=== PATIENT | female | born 1990 | race Caucasian/White ===

== ENCOUNTER 2016-10-12 19:10 | Outpatient (CLI) | payer BC ==
[~2016-10-12] VITALS: Ht 160 cm; Wt 71.8 kg
[~2016-10-12 19:10] MED LIST: ASPI325T4 PO; ATOR10TA9 PO; MAGN500C PO; MAGN500T PO; NORG1TAB61 PO; VITA1TAB71 PO
[2016-10-12 19:30] VITALS: BP 108/70
== END 2016-10-12 21:09 | disposition home or self-care (01) ==
LOC: LDOP 19:10
PROVIDERS: ATTEND Student in an Organized Health Care Education/Training Program
DX: O26.893 Other specified pregnancy related conditions, third trimester (principal); O62.9 Abnormality of forces of labor, unspecified; R10.9 Unspecified abdominal pain; Z3A.39 39 weeks gestation of pregnancy
CPT/HCPCS: 59025; 89060; 99211; G0463; Q0114

== ENCOUNTER 2016-10-13 20:44 | Outpatient (CLI) | payer BC ==
[~2016-10-13] VITALS: Ht 160 cm; Wt 71.8 kg
[2016-10-13 21:11] VITALS: BP 126/77
== END 2016-10-13 22:15 | disposition home or self-care (01) ==
LOC: LDOP 20:44
PROVIDERS: ATTEND Student in an Organized Health Care Education/Training Program
DX: O26.893 Other specified pregnancy related conditions, third trimester (principal); O42.92 Full-term premature rupture of membranes, unspecified as to length of time between rupture and onset of labor; O62.9 Abnormality of forces of labor, unspecified; R10.9 Unspecified abdominal pain; Z3A.38 38 weeks gestation of pregnancy
CPT/HCPCS: 59025; 99211; G0463

== ENCOUNTER 2016-10-18 06:24 | Outpatient (CLI) | payer BC ==
[~2016-10-18] VITALS: Ht 160 cm; Wt 72.0 kg
== END 2016-10-18 07:00 | disposition home or self-care (01) ==
LOC: LDOP 06:24
PROVIDERS: ATTEND Student in an Organized Health Care Education/Training Program
DX: O62.9 Abnormality of forces of labor, unspecified (principal); O42.92 Full-term premature rupture of membranes, unspecified as to length of time between rupture and onset of labor; Z3A.39 39 weeks gestation of pregnancy
CPT/HCPCS: 59025; 99211; G0463

== ENCOUNTER 2016-10-20 14:58 | Inpatient (IN) | payer BC ==
[~2016-10-20] VITALS: Ht 160 cm; Wt 72.2 kg
[2016-10-20 15:21] VITALS: BP 116/78
[2016-10-20] MEDS ORDERED: ASPI-496 PO (15:49)
[2016-10-20] MEDS ORDERED: PREN1TAB60 PO (15:50)
[2016-10-20] MEDS ORDERED: D5%-LACTATED RINGERS 1,000 ML IV SCH ×2 (16:43→17:11)
[2016-10-20] MEDS ORDERED: OXYTOCIN 30U/ 0.9% NaCL 500ML 500 ML IV ONE (16:43)
[2016-10-20] MEDS ORDERED: ONDANSETRON 2MG/ML, 2ML IVPush PRN (17:00)
[2016-10-20] MEDS ORDERED: METOCLOPRAMIDE 5 MG/ML, 2ML IVPush PRN (17:00)
[2016-10-20] MEDS ORDERED: SODIUM CHLORIDE FLUSH 10ML SYR IVF PRN (17:00)
[2016-10-20] MEDS ORDERED: SODIUM CITRATE/CITRIC ACID 30 ML UDC PO PRN (17:00)
[2016-10-20] MEDS ORDERED: FENTANYL PF 100 MCG/2ML IVPush PRN (17:00)
[2016-10-20] MEDS ORDERED: LACTATED RINGERS 1,000 ML IV SCH (17:11)
[2016-10-20] MEDS ORDERED: NEWBORN KIT ONE (17:36)
== END 2016-10-20 21:30 | disposition home or self-care (01) | DRG 782 ==
LOC: LDOP 14:58 → LDIP 16:50
PROVIDERS: ADMIT Student in an Organized Health Care Education/Training Program; ATTEND Student in an Organized Health Care Education/Training Program
DX: O62.8 Other abnormalities of forces of labor (principal); Z3A.39 39 weeks gestation of pregnancy; Z88.8 Allergy status to other drugs, medicaments and biological substances; Z86.73 Personal history of transient ischemic attack (TIA), and cerebral infarction without residual deficits
CPT/HCPCS: 36415; 59025; 85025; 86850; 86900; 96360; 96361; J7120

== ENCOUNTER 2016-10-21 16:17 | Inpatient (IN) | payer BC ==
[~2016-10-21] VITALS: Ht 160 cm; Wt 72.3 kg
[~2016-10-21 16:17] MED LIST changes: +ASPI-496 PO; +PREN1TAB60 PO
[2016-10-21 16:49] VITALS: BP 112/74
[2016-10-21] MEDS ORDERED: PROMETHAZINE 25 MG/ML, 1ML ONE (17:38)
[2016-10-21] MEDS ORDERED: MEPERIDINE/PF 100 MG/ML ONE (17:38)
[2016-10-21] MEDS ORDERED: PROMETHAZINE 25 MG/ML, 1ML IM ONE (18:00)
[2016-10-21] MEDS ORDERED: MEPERIDINE/PF 50 MG/ML IM PRN (18:00)
[2016-10-21] MEDS ORDERED: LACTATED RINGERS 1,000 ML IVBOLUS ONE (18:00)
[2016-10-21] MEDS ORDERED: CEFTRIAXONE PMX 1GM/50ML 50 ML IV ONE (18:00)
[2016-10-21] MEDS ORDERED: OXYTOCIN 30U/ 0.9% NaCL 500ML 500 ML IV ONE (21:03)
[2016-10-21] MEDS ORDERED: OXYTOCIN 30U/ 0.9% NaCL 500ML 500 ML IV PRN (21:03)
[2016-10-21] MEDS ORDERED: FENTANYL PF 100 MCG/2ML IVPush PRN (21:30)
[2016-10-21] MEDS ORDERED: ONDANSETRON 2MG/ML, 2ML IVPush PRN (21:30)
[2016-10-21] MEDS ORDERED: SODIUM CITRATE/CITRIC ACID 30 ML UDC PO PRN (21:30)
[2016-10-21] MEDS ORDERED: CALCIUM CARBONATE 500 MG TAB.CHEW PO PRN (21:30)
[2016-10-21] MEDS ORDERED: TERBUTALINE 1 MG/ML, 1ML IVPush PRN (21:30)
[2016-10-21] MEDS ORDERED: TERBUTALINE 1 MG/ML, 1ML SQ PRN (21:30)
[2016-10-21] MEDS ORDERED: FENTANYL PF 100 MCG/2ML IV PRN (21:30)
[2016-10-21] MEDS ORDERED: ALUMINUM/MAG/SIMETHICONE 30 ML UDC PO PRN (21:30)
[2016-10-21] MEDS ORDERED: METOCLOPRAMIDE 5 MG/ML, 2ML IVPush PRN (21:30)
[2016-10-21] MEDS ORDERED: LIDOCAINE/PF 1.5%-EPI 1:200K, 30ML ONE (21:41)
[2016-10-21] MEDS ORDERED: FENTANYL/BUPIV./NS/PF 250 ML EPIDCONT ONE (21:41)
[2016-10-21] MEDS ORDERED: FENTANYL/BUPIV./NS/PF 250 ML EPIDCONT SCH (22:02)
[2016-10-21] MEDS: LACTATED RINGERS 1,000 ML IV SCH (22:03)
[2016-10-21] MEDS ORDERED: OXYTOCIN 30U/ 0.9% NaCL 500ML 500 ML ONE (22:22)
[2016-10-21] MEDS ORDERED: LACTATED RINGERS 1,000 ML IVBOLUS PRN (22:30)
[2016-10-21] MEDS ORDERED: TERBUTALINE 1 MG/ML, 1ML ONE (22:44)
[2016-10-21] MEDS: D5%-LACTATED RINGERS 1,000 ML IV SCH (23:07)
[2016-10-22] MEDS ORDERED: NEWBORN KIT ONE (04:12)
[2016-10-22] MEDS ORDERED: MISOPROSTOL 200 MCG TABLET ONE (04:12)
[2016-10-22] MEDS ORDERED: LIDOCAINE 1%, 20ML ONE (04:12)
[2016-10-22] MEDS: LACTATED RINGERS 1,000 ML IV SCH ×3 (05:03→06:02)
[2016-10-22] MEDS: D5%-LACTATED RINGERS 1,000 ML IV SCH (05:03)
[2016-10-22] MEDS ORDERED: DOCUSATE 100 MG CAPSULE PO PRN (07:00)
[2016-10-22] MEDS ORDERED: IBUPROFEN 600 MG TABLET PO PRN (07:00)
[2016-10-22] MEDS ORDERED: HYDROcodone/APAP 5/325 TABLET PO PRN ×2 (07:00)
[2016-10-22] MEDS ORDERED: ONDANSETRON 2MG/ML, 2ML IV PRN (07:00)
[2016-10-22] MEDS ORDERED: MISOPROSTOL 200 MCG TABLET PR PRN (07:00)
[2016-10-22] MEDS ORDERED: CALCIUM CARBONATE 500 MG TAB.CHEW PO PRN (07:00)
[2016-10-22] MEDS ORDERED: OXYTOCIN 30U/ 0.9% NaCL 500ML 500 ML ONE (07:03)
[2016-10-22] MEDS: OXYTOCIN 30U/ 0.9% NaCL 500ML 500 ML IV SCH ×2 (07:14→16:56)
[2016-10-22] MEDS ORDERED: MEASLES,MUMPS&RUBELLA VACC/PF 0.5 ML SQ-VACC ONE (08:30)
[2016-10-22] MEDS: PRENATAL VIT/IRON/FA 1 EACH TABLET PO SCH (09:00)
[2016-10-22 09:15] VITALS: BP 113/76
[2016-10-22 12:10] VITALS: BP 110/68
[2016-10-22] MEDS: ACETAMINOPHEN 325 MG TABLET PO PRN ×2 (16:27→22:21)
[2016-10-22 16:32] VITALS: BP 120/82
[2016-10-22] MEDS: ASPIRIN 81 MG TABLET CHEW PO SCH (16:49)
[2016-10-22 19:25] VITALS: BP 102/64
[2016-10-23] VITALS: BP 105/70
[2016-10-23] MEDS ORDERED: HYDR-3240 PO (01:37)
[2016-10-23] MEDS ORDERED: IBUP800T PO (01:38)
[2016-10-23] MEDS ORDERED: DOCU-30 PO (01:39)
[2016-10-23] MEDS: OXYTOCIN 30U/ 0.9% NaCL 500ML 500 ML IV SCH ×2 (02:56→22:56)
[2016-10-23 04:40] VITALS: BP 117/67
[2016-10-23] MEDS: ACETAMINOPHEN 325 MG TABLET PO PRN ×3 (04:46→18:15)
[2016-10-23 07:55] VITALS: BP 107/68
[2016-10-23] MEDS: PRENATAL VIT/IRON/FA 1 EACH TABLET PO SCH (09:00)
[2016-10-23] MEDS: ASPIRIN 81 MG TABLET CHEW PO SCH (09:07)
[2016-10-23 21:00] VITALS: BP 111/79
[2016-10-24] MEDS: ACETAMINOPHEN 325 MG TABLET PO PRN (00:32)
[2016-10-24 07:24] VITALS: BP 107/45
[2016-10-24] MEDS: PRENATAL VIT/IRON/FA 1 EACH TABLET PO SCH (07:24)
[2016-10-24] MEDS: OXYTOCIN 30U/ 0.9% NaCL 500ML 500 ML IV SCH (08:56)
[2016-10-24] MEDS: ASPIRIN 81 MG TABLET CHEW PO SCH (08:57)
== END 2016-10-24 11:10 | disposition home or self-care (01) | DRG 775 ==
LOC: LDOP 16:17 → LDIP 21:33 → 2NW 10-22 09:14
PROVIDERS: ADMIT Student in an Organized Health Care Education/Training Program; ATTEND Student in an Organized Health Care Education/Training Program
PROC: 10E0XZZ Delivery of Products of Conception, External Approach (ICD-10-PCS; principal; 2016-10-22)
PROC: 0KQM0ZZ Repair Perineum Muscle, Open Approach (ICD-10-PCS; 2016-10-22)
PROC: 10907ZC Drainage of Amniotic Fluid, Therapeutic from Products of Conception, Via Natural or Artificial Opening (ICD-10-PCS; 2016-10-22)
PROC: 00HU33Z Insertion of Infusion Device into Spinal Canal, Percutaneous Approach (ICD-10-PCS; 2016-10-22)
PROC: 3E0R3CZ (ICD-10-PCS; 2016-10-22)
DX: O99.354 Diseases of the nervous system complicating childbirth (principal); G43.109 Migraine with aura, not intractable, without status migrainosus; O99.284 Endocrine, nutritional and metabolic diseases complicating childbirth; E28.2 Polycystic ovarian syndrome; O70.1 Second degree perineal laceration during delivery; O69.81X0 Labor and delivery complicated by cord around neck, without compression, not applicable or unspecified; O76 Abnormality in fetal heart rate and rhythm complicating labor and delivery; Z79.82 Long term (current) use of aspirin; Z37.0 Single live birth; Z3A.40 40 weeks gestation of pregnancy; Z86.73 Personal history of transient ischemic attack (TIA), and cerebral infarction without residual deficits; Z88.8 Allergy status to other drugs, medicaments and biological substances; Z91.018 Allergy to other foods
CPT/HCPCS: 36415; 81001; 85025; 86850; 86900; 87086; 89060; J0696; J2175; J2550; J3490; J2590; J7120; J7121; Q0114

== ENCOUNTER → 2017-03-18 | Outpatient (CLI) | payer BC, OTHER ==
[~2017-03-18] MED LIST changes: +ASPI325T17 PO; -ASPI325T4 PO; +DOCU-131 PO; +HYDR-3240 PO; +IBUP-1223 PO; -MAGN500C PO; +MAGN500C9 PO
== END | disposition home or self-care (01) ==
LOC: CFH 10:41
PROVIDERS: ATTEND Psychiatry & Neurology Neurology
DX: I63.8 Other cerebral infarction (principal)
CPT/HCPCS: 36415; 80061

== ENCOUNTER 2018-08-21 10:12 | Observation (INO) | payer OTHER ==
[~2018-08-21] VITALS: Ht 160 cm; Wt 70.9 kg
[2018-08-21 10:19] VITALS: BP 108/69
[2018-08-21 10:49] LABS: MICROSCOPIC INDICATED
[2018-08-21] MEDS ORDERED: BETAMETHASONE 6 MG/ML, 5ML IM SCH (11:00)
[2018-08-21] MEDS ORDERED: TERBUTALINE 1 MG/ML, 1ML SQ ONE (11:00)
[2018-08-21] MEDS ORDERED: BETAMETHASONE 6 MG/ML, 5ML IM ONE (11:01)
[2018-08-21] MEDS ORDERED: TERBUTALINE 1 MG/ML, 1ML ONE (11:37)
[2018-08-21] MEDS ORDERED: D5%-LACTATED RINGERS 1,000 ML IV SCH ×2 (12:30)
[2018-08-21 12:58] LABS: BASOPHILS # (AUTO) 0.03 x10^3/uL (0-0.1); BASOPHILS % (AUTO) 0 % (0-1); EOSINOPHILS % (AUTO) 0 % (1-7); LYMPHOCYTES % (AUTO) 13 % (22-44); MD NO; MEAN CORPUSCULAR HEMOGLOBIN 31.8 pg (27.0-34.8); MEAN CORPUSCULAR HGB CONC 34.4 g/dL (32.4-35.8); MEAN CORPUSCULAR VOLUME 92.4 fL (80-100); MEAN PLATELET VOLUME 8.1 fL (7.4-10.4); MONOCYTES # (AUTO) 0.22 x10^3/uL (0.2-0.8); MONOCYTES % (AUTO) 2 % (2-9); NEUTROPHILS # (AUTO) 8.06 x10^3/uL (1.8-6.8); NEUTROPHILS % (AUTO) 85 % (42-75); PLATELET COUNT 196 x10^3/uL (130-400); RED BLOOD COUNT 3.88 x10^6/uL (3.82-5.3); RED CELL DISTRIBUTION WIDTH 13.2 % (9.6-15.2)
[2018-08-21] MEDS ORDERED: AMPICILLIN 2 GM in SODIUM CHLORIDE 0.9% 100 ML IVPB STA (13:30)
[2018-08-21] MEDS ORDERED: ACETAMINOPHEN 325 MG TABLET ONE ×2 (14:44→14:45)
[2018-08-21] MEDS ORDERED: ACETAMINOPHEN 325 MG TABLET PO PRN (15:00)
[2018-08-21] MEDS ORDERED: LACTATED RINGERS 1,000 ML IV SCH (15:00)
[2018-08-21] MEDS ORDERED: AMPICILLIN 1 GM in SODIUM CHLORIDE 0.9% 100 ML IVPB SCH (17:30)
[2018-08-21 19:41] VITALS: BP 99/65
== END 2018-08-21 21:27 | disposition home or self-care (01) ==
LOC: LDOP 10:12 → LDIP 12:21 → INTOOBSV 12:21 → UNDOADMOB 12:21 → LDIP 12:23
PROVIDERS: ADMIT Obstetrics & Gynecology; ATTEND Obstetrics & Gynecology
DX: O62.9 Abnormality of forces of labor, unspecified (principal); Z3A.35 35 weeks gestation of pregnancy
CPT/HCPCS: 36415; 81001; 85025; 86850; 86900; 87086; 96365; 96366; 96372; G0378; J0290; J0702; J3105; J7120; J7121; 59025; 96360; 96361; 99211; G0463

== ENCOUNTER 2018-08-22 10:45 | Outpatient (CLI) | payer OTHER ==
[~2018-08-22] VITALS: Ht 160 cm; Wt 70.9 kg
[2018-08-22 10:54] VITALS: BP 100/65
[2018-08-22] MEDS ORDERED: PLEASE ENTER HEIGHT AND WEIGHT MC SCH (11:00)
[2018-08-22] MEDS ORDERED: BETAMETHASONE 6 MG/ML, 5ML IM ONE (11:00)
== END 2018-08-22 12:23 | disposition home or self-care (01) ==
LOC: LDOP 10:45
PROVIDERS: ATTEND Obstetrics & Gynecology
DX: O62.9 Abnormality of forces of labor, unspecified (principal); Z3A.35 35 weeks gestation of pregnancy
CPT/HCPCS: 59025; 99211; J0702; G0463

== ENCOUNTER 2018-08-24 12:56 | Outpatient (CLI) | payer OTHER ==
[~2018-08-24] VITALS: Ht 160 cm; Wt 70.9 kg
[2018-08-24 13:04] VITALS: BP 102/59
== END 2018-08-24 14:40 | disposition home or self-care (01) ==
LOC: LDOP 12:56
PROVIDERS: ATTEND Obstetrics & Gynecology
DX: O42.913 Preterm premature rupture of membranes, unspecified as to length of time between rupture and onset of labor, third trimester (principal); Z3A.31 31 weeks gestation of pregnancy
CPT/HCPCS: 59025; 84112; 99211; G0463

== ENCOUNTER 2018-09-06 20:20 | Outpatient (CLI) | payer OTHER ==
[~2018-09-06] VITALS: Ht 160 cm; Wt 70.9 kg
[2018-09-06 21:00] VITALS: BP 122/75
== END 2018-09-06 21:44 | disposition home or self-care (01) ==
LOC: LDOP 20:20
PROVIDERS: ATTEND Obstetrics & Gynecology
DX: O62.9 Abnormality of forces of labor, unspecified (principal); O42.92 Full-term premature rupture of membranes, unspecified as to length of time between rupture and onset of labor; Z3A.37 37 weeks gestation of pregnancy; Z88.8 Allergy status to other drugs, medicaments and biological substances
CPT/HCPCS: 59025; 89060; 99211; G0463; Q0114

== ENCOUNTER 2018-09-15 06:50 | Inpatient (IN) | payer OTHER ==
[~2018-09-15] VITALS: Ht 160 cm; Wt 71.8 kg
[2018-09-15] MEDS ORDERED: D5%-LACTATED RINGERS 1,000 ML IV SCH (07:08)
[2018-09-15] MEDS ORDERED: OXYTOCIN 30U/ 0.9% NaCL 500ML 500 ML IV ONE (07:08)
[2018-09-15] MEDS ORDERED: LACTATED RINGERS 1,000 ML IV SCH ×2 (07:08→08:25)
[2018-09-15] MEDS ORDERED: OXYTOCIN 30U/ 0.9% NaCL 500ML 500 ML IV PRN (07:08)
[2018-09-15] MEDS ORDERED: SODIUM CITRATE/CITRIC ACID 15 ML UDC PO PRN (07:30)
[2018-09-15] MEDS ORDERED: FENTANYL PF 100 MCG/2ML IVPush PRN (07:30)
[2018-09-15] MEDS ORDERED: FENTANYL PF 100 MCG/2ML IV PRN (07:30)
[2018-09-15] MEDS ORDERED: ONDANSETRON 2MG/ML, 2ML IVPush PRN (07:30)
[2018-09-15] MEDS ORDERED: METOCLOPRAMIDE 5 MG/ML, 2ML IVPush PRN (07:30)
[2018-09-15] MEDS ORDERED: TERBUTALINE 1 MG/ML, 1ML IVPush PRN (07:30)
[2018-09-15] MEDS ORDERED: OXYTOCIN 30U/ 0.9% NaCL 500ML 500 ML ONE ×2 (07:48→12:07)
[2018-09-15] MEDS ORDERED: MISOPROSTOL 200 MCG TABLET ONE (07:48)
[2018-09-15] MEDS ORDERED: NEWBORN KIT ONE (07:48)
[2018-09-15 08:09] LABS: BASOPHILS # (AUTO) 0.02 x10^3/uL (0-0.1); BASOPHILS % (AUTO) 0 % (0-1); EOSINOPHILS # (AUTO) 0.02 x10^3/uL (0-0.4); EOSINOPHILS % (AUTO) 0 % (1-7); LYMPHOCYTES % (AUTO) 29 % (22-44); MD NO; MEAN CORPUSCULAR HEMOGLOBIN 31.2 pg (27.0-34.8); MEAN CORPUSCULAR HGB CONC 33.3 g/dL (32.4-35.8); MEAN CORPUSCULAR VOLUME 93.6 fL (80-100); MEAN PLATELET VOLUME 9.3 fL (7.4-10.4); MONOCYTES # (AUTO) 0.66 x10^3/uL (0.2-0.8); MONOCYTES % (AUTO) 8 % (2-9); NEUTROPHILS # (AUTO) 5.32 x10^3/uL (1.8-6.8); NEUTROPHILS % (AUTO) 63 % (42-75); PLATELET COUNT 211 x10^3/uL (130-400); RED BLOOD COUNT 4.49 x10^6/uL (3.82-5.3)
[2018-09-15] MEDS ORDERED: FENTANYL/BUPIV./NS/PF 250 ML EPIDCONT SCH ×2 (08:25→08:27)
[2018-09-15] MEDS ORDERED: LACTATED RINGERS 1,000 ML IVBOLUS PRN ×2 (08:30)
[2018-09-15] MEDS ORDERED: NALOXONE 0.4 MG/ML, 1ML IVPush PRN (08:30)
[2018-09-15] MEDS ORDERED: EPHEDRINE 50 MG/ML, 1ML IVPush PRN ×2 (08:30)
[2018-09-15] MEDS ORDERED: BUPIVACAINE 0.25% ONE (08:53)
[2018-09-15] MEDS ORDERED: FENTANYL PF 500 MCG, BUPIVACAINE/PF 0.5%, 30ML 62.5 ML in SODIUM CHLORIDE 0.9% 177.5 ML EPIDCONT SCH (09:00)
[2018-09-15] MEDS: LACTATED RINGERS 1,000 ML IV SCH ×2 (11:16→16:27)
[2018-09-15] MEDS ORDERED: MISOPROSTOL 200 MCG TABLET PR PRN (12:00)
[2018-09-15] MEDS ORDERED: IBUPROFEN 600 MG TABLET PO PRN (12:00)
[2018-09-15] MEDS ORDERED: ONDANSETRON 2MG/ML, 2ML IV PRN (12:00)
[2018-09-15] MEDS ORDERED: OXYcodone/APAP 5/325MG TABLET PO PRN (12:00)
[2018-09-15] MEDS ORDERED: ACETAMINOPHEN 325 MG TABLET PO PRN (12:00)
[2018-09-15] MEDS ORDERED: OXYcodone IR 5MG TABLET PO PRN (12:00)
[2018-09-15] MEDS ORDERED: IBUPROFEN 800 MG TABLET ONE (12:07)
[2018-09-15] MEDS: OXYTOCIN 30U/ 0.9% NaCL 500ML 500 ML IV SCH ×2 (13:30→21:58)
[2018-09-15] MEDS ORDERED: ACETAMINOPHEN 500 MG TABLET ONE (13:35)
[2018-09-15] MEDS: ACETAMINOPHEN 500 MG TABLET PO PRN ×2 (13:40→19:49)
[2018-09-15 14:30] VITALS: BP 112/78
[2018-09-15 17:49] VITALS: BP 113/73
[2018-09-15] MEDS: DOCUSATE 100 MG CAPSULE PO PRN (19:49)
[2018-09-15 20:06] VITALS: BP 122/78
[2018-09-15 20:42] LABS: BASOPHILS # (AUTO) 0.04 x10^3/uL (0-0.1); BASOPHILS % (AUTO) 0 % (0-1); EOSINOPHILS # (AUTO) 0.03 x10^3/uL (0-0.4); EOSINOPHILS % (AUTO) 0 % (1-7); LYMPHOCYTES # (AUTO) 2.28 x10^3/uL (1-3.4); LYMPHOCYTES % (AUTO) 20 % (22-44); MD NO; MEAN CORPUSCULAR HEMOGLOBIN 31.3 pg (27.0-34.8); MEAN CORPUSCULAR HGB CONC 32.9 g/dL (32.4-35.8); MEAN CORPUSCULAR VOLUME 95.3 fL (80-100); MEAN PLATELET VOLUME 9.1 fL (7.4-10.4); MONOCYTES # (AUTO) 0.95 x10^3/uL (0.2-0.8); MONOCYTES % (AUTO) 8 % (2-9); NEUTROPHILS # (AUTO) 7.95 x10^3/uL (1.8-6.8); NEUTROPHILS % (AUTO) 71 % (42-75); PLATELET COUNT 184 x10^3/uL (130-400); RED CELL DISTRIBUTION WIDTH 13.4 % (9.6-15.2)
[2018-09-16] VITALS: BP 105/68
[2018-09-16] MEDS: LACTATED RINGERS 1,000 ML IV SCH ×2 (00:27→08:27)
[2018-09-16] MEDS: ACETAMINOPHEN 500 MG TABLET PO PRN ×3 (01:49→13:58)
[2018-09-16 04:00] VITALS: BP 108/72
[2018-09-16 07:20] VITALS: BP 116/83
[2018-09-16] MEDS: DOCUSATE 100 MG CAPSULE PO PRN (07:54)
[2018-09-16] MEDS: OXYTOCIN 30U/ 0.9% NaCL 500ML 500 ML IV SCH (07:58)
[2018-09-16] MEDS ORDERED: PRENATAL VIT/IRON/FA 1 EACH TABLET PO SCH (09:00)
[2018-09-16] MEDS ORDERED: IBUP-1222 PO (11:38)
== END 2018-09-16 19:15 | disposition home or self-care (01) | DRG 807 ==
LOC: LDIP 06:50 → 2NW 13:56
PROVIDERS: ADMIT Obstetrics & Gynecology; ATTEND Obstetrics & Gynecology
PROC: 10E0XZZ Delivery of Products of Conception, External Approach (ICD-10-PCS; principal; 2018-09-15)
PROC: 0KQM0ZZ Repair Perineum Muscle, Open Approach (ICD-10-PCS; 2018-09-15)
PROC: 3E0R3BZ Introduction of Anesthetic Agent into Spinal Canal, Percutaneous Approach (ICD-10-PCS; 2018-09-15)
PROC: 00HU33Z Insertion of Infusion Device into Spinal Canal, Percutaneous Approach (ICD-10-PCS; 2018-09-15)
DX: O70.1 Second degree perineal laceration during delivery (principal); Z37.0 Single live birth; Z3A.38 38 weeks gestation of pregnancy
CPT/HCPCS: 36415; S0020; 85025; 86850; 86900; G0378; J3010; J3490; J2590; J7050; J7120